=== PATIENT | male | born 1970 | race Caucasian/White ===

== ENCOUNTER 2017-01-10 05:50 | Day surgery (SDC) | payer OTHER ==
[2017-01-10] MEDS ORDERED: ceFAZolin 2 GM/DEXTROSE 100 ML IV ONE (06:07)
[2017-01-10] MEDS ORDERED: LIDOCAINE 1% 2 ML INJ ID PRN (06:09)
[2017-01-10] MEDS ORDERED: LR 1,000 ML IV ONE (06:09)
[2017-01-10] MEDS ORDERED: THROMBIN (BOVINE) 20,000 UNIT VIAL TP ONE (06:48)
[2017-01-10] MEDS ORDERED: BUPIVACAINE/EPI 0.25% 30 ML SDV ONE (06:48)
[2017-01-10] MEDS ORDERED: BACITRACIN 50,000 UNITS/10 ML SYR IRR ONE (06:49)
[2017-01-10] MEDS ORDERED: MIDAZOLAM 2 MG/2 ML VIAL IVP ONE (06:56)
--- NOTE | 2017-01-10 06:59 | PDANEPAE ---
ANE History of Present Illness L5S1 Microdiscectomy ANE Past Medical History - Cardiovascular History Hx Hypertension: No Hx Arrhythmias: No Hx Chest Pain: No Hx Coronary Artery / Peripheral Vascular Disease: No Hx CHF / Valvular Disease: No Hx Palpitations: No Cardiovascular History Comment: [place] HAD ICD PLACED 2001 - Pulmonary History Hx COPD: No Hx Asthma/Reactive Airway Disease: No Hx Recent Upper Respiratory Infection: No Hx Oxygen in Use at Home: No Hx Sleep Apnea: Yes Sleep Apnea Screening Result - Last Documented: Positive Pulmonary History Comment: MILD DEMAR TRIED C-PAP NO USED PAST YEAR. CHRONIC BRONCHITS PAST INHALER USE NOT FOR 12 YRS - Neurologic History Hx Cerebrovascular Accident: No Hx Seizures: No Hx Dementia: No - Endocrine History Hx Diabetes: No - Renal History Hx Renal Disorders: No - Liver History Hx Hepatic Disorders: No - Neurological & Psychiatric Hx Hx Neurological and Psychiatric Disorders: No - Cancer History Hx Cancer: No - Congenital Disorder History Hx Congenital Disorders: No - GI History Hx Gastrointestinal Disorders: Yes Gastrointestinal History Comment: OCCASIONAL HEARTBURN WITH WEIGHT LOSS USING LESS - Other Health History Other Health History: LUMBAR RADICULOPATHY - Chronic Pain History Chronic Pain: Yes (LOWER BACK) - Surgical History Prior Surgeries: ICD 2001. 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 Model: [id number] ANE Patient History - Allergies Allergies/Adverse Reactions: No Known Allergies Allergy (Unverified 05/25/11 09:03) - Home Medications Home medications: home medication list seen and reviewed Home Medications: Herbal Drugs DAILY 11/20/16 [Last Taken Unknown] IBUPROFEN PRN 11/20/16 [Last Taken Unknown] Meloxicam DAILY06 11/20/16 [Last Taken Unknown] Prilosec 20 mg PRN 11/20/16 [Last Taken Unknown] ZYRTEC PRN 11/20/16 [Last Taken Unknown] - NPO status NPO Since - Liquids (Date): 01/09/17 NPO Since - Liquids (Time): 23:00 NPO Since - Solids (Date): 01/09/17 NPO Since - Solids (Time): 23:00 - Anes Hx Anes Hx: no prior problems - Smoking Hx Smoking Status: Former smoker - Family Anes Hx Family Anes Hx: none Family Hx Anesthesia Complications: NEG ANE Labs/Vital Signs - Vital Signs Blood Pressure: 135/87 Heart Rate: 68 Respiratory Rate: 14 O2 Sat (%): 94 Height: 177.8 cm Weight: 90.718 kg ANE Physical Exam - Airway Neck exam: FROM Mallampati Score: Class 2 Mouth exam: normal dental/mouth exam - Pulmonary Pulmonary: no respiratory distress - Cardiovascular Cardiovascular: regular rate and rhythym - ASA Status ASA Status: II ANE Anesthesia Plan Anesthesia Plan: general endotracheal anesthesia
[2017-01-10] MEDS ORDERED: ONDANSETRON 4 MG/2 ML VIAL ONE (07:05)
[2017-01-10] MEDS ORDERED: DEXAMETHASONE 4 MG/ML VIAL ONE (07:05)
[2017-01-10] MEDS ORDERED: PROPOFOL 200 MG/20 ML VIAL ONE ×3 (07:06→08:38)
[2017-01-10] MEDS ORDERED: fentaNYL 100 MCG/2 ML INJ ONE ×2 (07:06→08:03)
[2017-01-10] MEDS ORDERED: ROCURONIUM 50 MG/5 ML VIAL ONE ×2 (07:06→08:07)
--- NOTE | 2017-01-10 07:07 | PDHPUP ---
History & Physical Update H&P update statement: This history and physical update is based on an assessment of the patient which was completed after admission or registration (within 24 hours), but prior to the surgery/procedure. H&P update: H&P reviewed & patient examined, no change in patient's condition since H&P completed (Consents signed and site marked. Plan for left sided L5/ S1 microdiscectomy.)
[2017-01-10] MEDS ORDERED: LIDOCAINE 2% 5 ML SDV ONE (07:12)
[2017-01-10] MEDS ORDERED: DEXAMETHASONE 4 MG/ML VIAL IVP PRN (08:14)
[2017-01-10] MEDS ORDERED: OXYCODONE/APAP 5/325 TAB PO PRN (08:14)
[2017-01-10] MEDS ORDERED: NALOXONE HCL 0.4 MG/ML INJ IVP PRN (08:14)
[2017-01-10] MEDS ORDERED: fentaNYL 100 MCG/2 ML INJ IVP PRN (08:14)
[2017-01-10] MEDS ORDERED: HYDROCODONE/APAP 5/325 TAB PO PRN (08:14)
[2017-01-10] MEDS ORDERED: HYDROmorphONE/DILAUDID 1 MG/ML SYR IVP PRN (08:14)
[2017-01-10] MEDS ORDERED: PROMETHAZINE HCL 25 MG/ML INJ IVP PRN (08:14)
[2017-01-10] MEDS ORDERED: MEPERIDINE 25 MG/ML SYR IVP PRN (08:14)
[2017-01-10] MEDS ORDERED: ACETAMINOPHEN 500 MG TAB PO PRN (08:14)
[2017-01-10] MEDS ORDERED: ONDANSETRON 4 MG/2 ML VIAL IVP PRN ×2 (08:14→09:17)
--- NOTE | 2017-01-10 08:16 | POSTANESTH ---
Post Anesthetic Evaluation Cardiovascular Status: Normal, Stable, Similar to Pre-Op Cond Respiratory Status: Normal, Stable, Similar to Pre-op Cond. Level of Consciousness/Mental Status: Can Participate in Eval, Mildly Sleepy, Arousable Pain Control: Adequate, Prn Tx Ordered Nausea/Vomiting Control: Adequate, Prn Tx Ordered Complications Possibly Related to Anesthesia: None Noted
[2017-01-10] MEDS ORDERED: SUGAMMADEX SODIUM 200 MG/2 ML VIAL IVP ONE (08:59)
[2017-01-10] MEDS ORDERED: METHOCARBAMOL 750 MG TAB PO PRN (09:17)
[2017-01-10] MEDS ORDERED: BISACODYL 10 MG SUPP PR PRN (09:17)
[2017-01-10] MEDS ORDERED: MAGNESIUM HYDROXIDE 30 ML UDCUP PO PRN (09:17)
[2017-01-10] MEDS ORDERED: ONDANSETRON DISINTEGRATING 4 MG TAB PO PRN (09:17)
[2017-01-10] MEDS ORDERED: oxyCODONE IR 5 MG TAB PO PRN (09:17)
[2017-01-10] MEDS ORDERED: diphenhydrAMINE 25 MG CAP PO PRN (09:17)
[2017-01-10] MEDS ORDERED: LACTULOSE 20 GM/30 ML UDCUP PO PRN (09:17)
[2017-01-10] MEDS ORDERED: POLYETHYLENE GLYCOL 3350 17 GM PKT PO PRN (09:17)
--- NOTE | 2017-01-10 09:26 | POSTOPPROG ---
Post Op Note Date of Operation: 01/10/17 Surgeon: Favio Rangel [facility] Underwriter: ARACELY Garay PAC Anesthesia: GET(General Endotracheal) Pre-op Diagnosis: L5/S1 HNP Post-op Diagnosis: L5/S1 HNP Indication: left leg radiculopathy, L5/S1 HNP Procedure: Left L5/S1 JEANNE Inf/Abcess present in the surg proc area at time of surgery?: No EBL: Minimal PA Addendum - Addendum .: S: denies pain O: NAD A&Ox3 MAex4 5/5 and equal in BUE and BLE. A/P 46y/o male s/p L5/S1 JEANNE -Advance diet as tolerated -Optimize pain management -May d/c home when meets PACU criteria. -Please notify NS with any change in neuro/motor exam
[2017-01-10 09:30] VITALS: TEMP 96.8
[2017-01-10 09:58] VITALS: RESP 23; O2SAT 91
[2017-01-10 10:16] VITALS: BP 135/91; PULSE 66
--- NOTE | 2017-01-10 10:52 | GOP ---
[f rep st] OPERATIVE REPORT DATE OF OPERATION: 01/10/2017 SURGEON: Favio Rangel MD BILLING DEPARTMENT SUPERVISOR: Dayana Garay P.A.-C. ANESTHESIA: General. PREOPERATIVE DIAGNOSIS: 1. Left-sided L5-S1 herniated nucleus pulposus with left lower extremity radiculopathy. 2. Treatment refractory to nonoperative intervention. POSTOPERATIVE DIAGNOSIS: 1. Left-sided L5-S1 herniated nucleus pulposus with left lower extremity radiculopathy. 2. Treatment refractory to nonoperative intervention. PROCEDURE PERFORMED: 1. Left-sided L5-S1 hemilaminotomy with medial facetectomy, microdiskectomy and nerve decompression. 2. Use of intraoperative fluoroscopy, less than 1 hour physician time. 3. Use of neuromonitoring. 4. Use of the operating microscope. FINDINGS: per imaging SPECIMENS: None. ESTIMATED BLOOD LOSS: 20 mL. INDICATIONS: This patient is a 46-year-old gentleman who unfortunately has been suffering from a longstanding history of left lower extremity radiculopathy. He had evidence of a left-sided L5-S1 herniated nucleus pulposus with nerve compression. After failing nonoperative intervention and after discussion of the risks, benefits, and treatment alternatives, we decided to proceed forth with surgery as described above. DESCRIPTION OF PROCEDURE: The patient was brought to the operating theater and underwent general endotracheal anesthesia without complications. He had Venodyne, GEMMA hose and the appropriate lines placed by Anesthesia. He was placed prone onto the Mich frame, and all bony processes inspected and padded. The lower lumbar region was prepped and draped in the usual sterile surgical fashion. A time-out was completed per protocol. The patient received antibiotics within 1 hour of incision. Using lateral fluoroscopy and a spinal needle, we picked our entry point to the L5-S1 level. This was marked in the midline and the incision was infiltrated with Marcaine with epinephrine. The incision was taken down initially with the scalpel blade. Then using the monopolar, the incision was taken down in the midline to the lumbodorsal fascia to the left side of the L5-S1 interlaminar space. A deep retractor was placed to maintain our exposure, and we confirmed our level using lateral fluoroscopy. The microscope was brought into the field to assist with microscopic dissection and to maintain illumination and magnification. Using a combination of the margarita tip on the drill bit and Kerrison punches, we completed a left-sided L5-S1 hemilaminotomy with medial facetectomy. We resected the ligamentum flavum and retracted the thecal sac and S1 nerve root medially. On the ventral aspect of the nerve root, we used down pushing curettes and we were able to get out 2 very large free fragments of disk material from the medial aspect of the disk canal. I also used the 2 Kerrison punches to remove the small amount of dorsal bone osteophyte from the caudal aspect of L5 on the L5-S1 disk space. Once we felt that everything was well decompressed on manual palpation around the S1 nerve root, we obtained hemostasis with the bipolar. We irrigated the wound copiously with bacitracin irrigation and closed the wound in multiple layers using Vicryl sutures for the deep layers and Dermabond for the skin. The patient's wounds were dressed sterilely. He was then flipped supine onto the transfer cart, where he was awakened, extubated, and taken to the recovery room in a stable condition. There were no complications and no noted changes on neuromonitoring throughout the procedure. COMPLICATION: None. /[id number]/MODL MTDD
[2017-01-10] MEDS ORDERED: ACETAMINOPHEN 500 MG TAB PO SCH (14:00)
[2017-01-10] MEDS ORDERED: SENNOSIDES/DOCUSATE SODIUM TAB PO SCH (21:00)
[2017-01-10] MEDS ORDERED: FAMOTIDINE 20 MG TAB PO SCH (21:00)
== END 2017-01-10 10:25 | disposition home or self-care (01) ==
LOC: FSGY 05:50
PROVIDERS: ATTEND Neurological Surgery
PROC: BR131ZZ Fluoroscopy of Lumbar Disc(s) using Low Osmolar Contrast (ICD-10-PCS; principal; 2017-01-10 07:15)
PROC: 0SB40ZZ Excision of Lumbosacral Disc, Open Approach (ICD-10-PCS; principal; 2017-01-10 07:15)
PROC: 8E0WXBZ Computer Assisted Procedure of Trunk Region (ICD-10-PCS; principal; 2017-01-10 07:15)
DX: M51.17 Intervertebral disc disorders with radiculopathy, lumbosacral region (principal); Z95.810 Presence of automatic (implantable) cardiac defibrillator; I47.2 Ventricular tachycardia; E78.1 Pure hyperglyceridemia; G47.33 Obstructive sleep apnea (adult) (pediatric)
CPT/HCPCS: J0690; J1100; J2250; J2405; J2704; J3010